=== PATIENT | female | born 1985 | race Caucasian/White ===

== ENCOUNTER 2019-05-13 15:57 | Emergency (ER) | payer OTHER ==
[2019-05-13 16:31] VITALS: BMI 33.8
--- NOTE | 2019-05-13 16:34 | PDOC ---
Rapid Medical Evaluation Chief Complaint: Abnormal Lab Results (Outside) Time Seen by Provider: 05/13/19 16:29 Medical Evaluation: Allergies Allergy/AdvReac Type Severity Reaction Status Date / Time No Known Allergies Allergy Verified 05/13/19 16:27 Vital Signs Temp Pulse Resp BP Pulse Ox 98.7 F 75 16 119/64 98 05/13/19 16:28 05/13/19 16:28 05/13/19 16:28 05/13/19 16:28 05/13/19 16:28 05/13/19 16:33 Pt c/o: hx fibroids, h/h low (7.4), no s/s Pt on brief exam: vss, no abd tenderness Pt ordered for: labs, iv pt to proceed to the ED Discharge Disposition - Diagnosis Anemia - Discharge Dispostion Disposition: HOME Condition at time of disposition: Stable - Referrals Referrals: Jose David Poe [Primary Care Provider] - - Patient Instructions Printed Discharge Instructions: DI for Uterine Fibroids, DI for Iron Deficiency Anemia-Adult, DI for Vaginal Bleeding Additional Instructions: Please see your Primary Doctor within the next 48 hours. Continue taking your medications including Iron. Your Hemoglobin was around the same level as it was 1 week ago and since you are asymptomatic, you do not require transfusions. Return to the ER for new ro concerning symptoms including but not limited to: weakness, chest pain, shortness of breath. Thank you - Post Discharge Activity
[2019-05-13 17:22] LABS: BASO % 0.9 % (0-2.0); HEMATOCRIT 24.3 % (32.4-45.2); HEMOGLOBIN 7.3 GM/dL (10.7-15.3); LYMPH % 22.1 % (8-40); MCHC 29.9 g/dl (32.0-36.0); MEAN PLT VOLUME 8.3 fl (7.5-11.1); MONO % 6.3 % (3.8-10.2); NEUT % 69.7 % (42.8-82.8); PLATELET COUNT 486 K/MM3 (134-434); RBC 3.16 M/mm3 (3.60-5.2); RDW 20.8 % (11.6-15.6); WHITE BLOOD COUNT 6.6 K/mm3 (4.0-10.0)
[2019-05-13 18:01] LABS: ALBUMIN 3.3 g/dl (3.4-5.0); BILIRUBIN,TOTAL 0.2 mg/dL (0.2-1); BLOOD UREA NITROGEN 8.1 mg/dL (7-18); CALCIUM 8.6 mg/dL (8.5-10.1); CREATININE 0.8 mg/dL (0.55-1.3); POTASSIUM 4.1 mmol/L (3.5-5.1)
[2019-05-13 18:57] LABS: ANISOCYTOSIS 2+
--- NOTE | 2019-05-13 21:46 | PDOC ---
Attending Attestation - Resident Resident Name: Yossi Evans - ED Attending Attestation I have performed the following: I have examined & evaluated the patient, The case was reviewed & discussed with the resident, I agree w/resident's findings & plan, Exceptions are as noted - HPI HPI: 05/13/19 21:45 This 34-year-old female has a history of heavy menstrual cycles and fibroids and was found to have anemia last week by her primary care provider. She was placed on iron and told to come to the emergency department At this time she has no complaints. She is not orthostatic, she does not have dizziness or chest pain and she currently has no vaginal bleeding as her menstrual cycle has finished - Physicial Exam PE: 05/13/19 21:46 Well-nourished well-developed 34-year-old female with no complaints except she was told she had abnormal blood tests 05/13/19 21:47 Head normocephalic atraumatic neck was supple lungs cta b/l cvs [id number] abd nontedner skin warm and dry neuro axox3,ambulatory,no gross focal neuro defcits - Medical Decision Making 05/13/19 21:48 Last week her hemoglobin was 7.2 and today it is 7.3 She has no chest pain, no exertional dyspnea, no dizziness and she is not orthostatic She is already been started on iron and she has a plan follow-up with primary care physician Asymptomatic anemia due to heavy menstrual cycle and young female plan discharge home
[2019-05-13 21:49] VITALS: BP 120/68; PULSE 76; TEMP 98.2
--- NOTE | 2019-05-13 21:54 | PDOC ---
History of Present Illness - General Chief Complaint: Abnormal Lab Results (Outside) Stated Complaint: ANEMIC Time Seen by Provider: 05/13/19 16:29 History Source: Patient Exam Limitations: No Limitations - History of Present Illness Initial Comments: 05/13/19 22:01 34 yo female pmh fibroids and iron def anemia sent by EX ASSISTANT/PROGRAM DIRECTOR for low hemoglobin. Pt states she had prolonged menstrual cycle lasting 2 weeks with clots that ended 2 days ago that is abnormal for her. Pt denies current symptoms including light headedness, SOB, CP, weakness, dizziness, pallor. Pt discussed fibroid/uterine removal with TAX AUDIT MANAGER pending decision. Pt states she feels well today, no new complaints Past History - Past Medical History Allergies/Adverse Reactions: Allergies Allergy/AdvReac Type Severity Reaction Status Date / Time No Known Allergies Allergy Verified 05/13/19 16:27 Home Medications: Ambulatory Orders Ferrous Sulfate [Feosol] 325 mg PO BID 05/13/19 Anemia: Yes COPD: No Other medical history: fibroids - Psycho Social/Smoking Cessation Hx Smoking History: Never smoked Review of Systems - Review of Systems Constitutional: Yes: See HPI HEENTM: Yes: See HPI Respiratory: Yes: See HPI Cardiac (ROS): Yes: See HPI ABD/GI: Yes: See HPI : Yes: See HPI Musculoskeletal: Yes: See HPI Integumentary: Yes: See HPI Neurological: Yes: See HPI *Physical Exam - Vital Signs Last Vital Signs Temp Pulse Resp BP Pulse Ox 98.7 F 75 16 119/64 98 05/13/19 16:28 05/13/19 16:28 05/13/19 16:28 05/13/19 16:28 05/13/19 16:28 - Physical Exam General Appearance: Yes: Nourished, Appropriately Dressed. No: Apparent Distress HEENT: positive: EOMI Neck: positive: Supple. negative: Carotid bruit Respiratory/Chest: positive: Lungs Clear, Normal Breath Sounds. negative: Respiratory Distress, Accessory Muscle Use, Rapid RR, Crackles, Rales, Rhonchi, Stridor, Wheezing Cardiovascular: positive: Regular Rhythm, Regular Rate, S1, S2. negative: Edema , JVD, Murmur Vascular Pulses: Dorsalis-Pedis (R): 4+, Doralis-Pedis (L): 4+ Gastrointestinal/Abdominal: positive: Flat, Soft. negative: Pulsatile Mass, Protuberent, Distended, Guarding, Rebound, Tenderness Musculoskeletal: negative: CVA Tenderness Extremity: positive: Normal Inspection, Normal Range of Motion Integumentary: positive: Normal Color, Dry, Warm. negative: Pale, Cold, Clammy Neurologic: positive: Fully Oriented, Alert, Normal Mood/Affect, Normal Response ED Treatment Course - LABORATORY CBC & Chemistry Diagram: 05/13/19 16:43 05/13/19 16:43 - ADDITIONAL ORDERS Additional order review: Laboratory Results 05/13/19 05/13/19 05/13/19 16:43 16:43 16:43 Sodium 139 Potassium 4.1 Chloride 107 Carbon Dioxide 24 Anion Gap 7 L BUN 8.1 Creatinine 0.8 Est GFR (CKD-EPI)AfAm 112.27 Est GFR (CKD-EPI)NonAf 96.87 Random Glucose 103 Calcium 8.6 Total Bilirubin 0.2 AST 12 L ALT 23 Alkaline Phosphatase 54 Total Protein 7.0 Albumin 3.3 L Serum , Qual Negative Blood Type A POSITIVE Antibody Screen Negative 05/13/19 16:43 RBC 3.16 L MCV 77.0 L MCHC 29.9 L RDW 20.8 H MPV 8.3 Neutrophils % 69.7 Lymphocytes % 22.1 Monocytes % 6.3 Eosinophils % 1.0 Basophils % 0.9 Medical Decision Making - Medical Decision Making 05/13/19 22:06 34 yo female pmh fibroids and iron def anemia sent by EX ASSISTANT/PROGRAM DIRECTOR for low hemoglobin. Pt states she had prolonged menstrual cycle lasting 2 weeks with clots that ended 2 days ago that is abnormal for her. Pt denies current symptoms including light headedness, SOB, CP, weakness, dizziness, pallor. Pt discussed fibroid/uterine removal with TAX AUDIT MANAGER pending decision. Pt states she feels well today, no new complaints vitals WNL Labs show hemoglobin 7.3, no sig change and did not decrease since last week Pt asymptomatic, feels well Safe for DC home with strict return precautions Does not requires transfusion Discharge - Discharge Information Problems reviewed: Yes Clinical Impression/Diagnosis: Anemia Condition: Stable Disposition: HOME - Admission No - Follow up/Referral Referrals: Jose David Poe [Primary Care Provider] - - Patient Discharge Instructions Patient Printed Discharge Instructions: DI for Uterine Fibroids, DI for Iron Deficiency Anemia-Adult, DI for Vaginal Bleeding Additional Instructions: Please see your Primary Doctor within the next 48 hours. Continue taking your medications including Iron. Your Hemoglobin was around the same level as it was 1 week ago and since you are asymptomatic, you do not require transfusions. Return to the ER for new ro concerning symptoms including but not limited to: weakness, chest pain, shortness of breath. Thank you - Post Discharge Activity
== END 2019-05-13 22:07 | disposition home or self-care (01) ==
LOC: JER 15:57
DX: D50.8 Other iron deficiency anemias (principal); D25.9 Leiomyoma of uterus, unspecified
CPT/HCPCS: 36415; 80053; 84703; 85025; 86850; 86900; 86901; 99282-25